=== PATIENT | male | born 1985 ===

== ENCOUNTER 2019-05-17 16:50 | Emergency (ER) | payer OTHER ==
[2019-05-17 19:24] VITALS: BP 139/101
--- NOTE | 2019-05-17 19:29 | UC ---
Respiratory Complaint HPI - HPI Summary HPI Summary: 33-year-old male who has had cold symptoms and a productive cough of greenish sputum over the past 2 weeks. He denies any shortness of breath. He occasionally smokes cigarettes and also chews tobacco. - History of Current Complaint Chief Complaint: UCRespiratory Stated Complaint: COUGH Time Seen by Provider: 05/17/19 19:29 Hx Obtained From: Patient Onset/Duration: Gradual Onset Timing: Intermittent Episodes Severity Initially: Mild Severity Currently: Mild Pain Intensity: 2 Character: Cough: Productive - Productive cough of greenish sputum. Aggravating Factors: Nothing Alleviating Factors: Nothing Associated Signs And Symptoms: Positive: URI, Nasal Congestion - Allergies/Home Medications Allergies/Adverse Reactions: Allergies Allergy/AdvReac Type Severity Reaction Status Date / Time Penicillins Allergy Anaphylatic Verified 05/17/19 19:24 Shock Home Medications: Home Medications Amphetamine MIXED SALTS TAB* [Adderall TAB*] 5 mg PO DAILY 05/17/19 [History Confirmed 05/17/19] PMH/Surg Hx/FS Hx/Imm Hx Previously Healthy: Yes - Surgical History Surgical History: None - Family History Known Family History: Positive: Non-Contributory - Social History Occupation: Employed Full-time Lives: With Family Alcohol Use: Rare Substance Use Type: None Smoking Status (MU): Never Smoked Tobacco Type: Smokeless Tobacco Review of Systems All Other Systems Reviewed And Are Negative: Yes ENT: Positive: Nasal Discharge Respiratory: Positive: Cough - Productive cough of yellowish-green sputum Is Patient Immunocompromised?: No Physical Exam Triage Information Reviewed: Yes Appearance: Well-Appearing, No Pain Distress, Well-Nourished Vital Signs: Initial Vital Signs Temp 98.3 F 05/17/19 19:14 Pulse 111 05/17/19 19:14 Resp 16 05/17/19 19:14 BP 139/101 05/17/19 19:14 Pulse Ox 99 05/17/19 19:14 Vital Signs Reviewed: Yes Eyes: Positive: Conjunctiva Clear ENT: Positive: Pharynx normal, TMs normal, Uvula midline Neck: Positive: Supple, Nontender, No Lymphadenopathy Respiratory: Positive: No respiratory distress, No accessory muscle use, Rhonchi - Scattered rhonchi upper lobes but with good air movement. Cardiovascular: Positive: RRR, No Murmur, Brisk Capillary Refill Musculoskeletal Exam: Normal Neurological Exam: Normal Psychological Exam: Normal Skin Exam: Normal Respiratory Course/Dx - Course Course Of Treatment: Patient is comfortable here and does not appear ill. I'm going to treated with a Z-Bhargavi and a definite follow-up at the [facility] on Wednesday if no improvement. - Differential Dx/Diagnosis Provider Diagnosis: Bronchitis Discharge ED - Sign-Out/Discharge Documenting (check all that apply): Patient Departure All imaging exams completed and their final reports reviewed: No Studies - Discharge Plan Condition: Good Disposition: HOME Prescriptions: Azithromyxin BHARGAVI (NF) [Z-Bhargavi (Zithromax) 250 mg tabs #6] 2 tab PO .TODAY, THEN 1 DAILY #6 tab Patient Education Materials: Acute Bronchitis (ED) Referrals: No Primary Care Phys,NOPCP [Primary Care Provider] - [facility] [Outside] Additional Instructions: Increase fluids, follow-up with your primary care provider on Wednesday or Wednesday if no improvement. - Billing Disposition and Condition Condition: GOOD Disposition: Home
== END 2019-05-17 19:50 | disposition home or self-care (01) ==
LOC: UCEAST 16:50
DX: J40 Bronchitis, not specified as acute or chronic (principal); Z88.0 Allergy status to penicillin
CPT/HCPCS: 99202; G0463